=== PATIENT | male | born 1980 | race African-American/Black ===

== ENCOUNTER 2018-06-01 00:26 | Emergency (ER) | payer SELFPAY ==
[2018-06-01] MEDS ORDERED: Dexamethasone 4 MG TAB ONE (01:32)
== END 2018-06-01 02:04 | disposition home or self-care (01) ==
LOC: ERS 00:26
DX: J45.901 Unspecified asthma with (acute) exacerbation (principal); F17.200 Nicotine dependence, unspecified, uncomplicated
CPT/HCPCS: 94640; J7620; J8540

== ENCOUNTER 2018-09-23 13:12 | Emergency (ER) | payer SELFPAY ==
[2018-09-23] MEDS ORDERED: Ketorolac Tromethamine 30 MG/ML VIAL ONE (13:33)
--- NOTE | 2018-09-23 14:24 | ULT ---
ULTRASOUND WITH DOPPLER DUPLEX VENOUS LOWER EXTREMITY RIGHT: 09/23/18 HISTORY: 37-year-old male with right calf pain. TECHNIQUE: Color flow Doppler, spectral waveform analysis of pulsed Doppler, and bowling-scale imaging with ney vee and augmentation, were used to evaluate the right common femoral, femoral, popliteal, posterior tibial, and superficial femoral, veins; and the proximal portions of the profunda femoral and greater saphenous, veins. FINDINGS: There is normal compressibility, demonstration of blood flow by color Doppler and pulsed Doppler, and response to augmentation, in all interrogated veins. IMPRESSION: Negative. No deep vein thrombosis in the right lower extremity. jn [] POS: SATYA
== END 2018-09-23 14:43 | disposition home or self-care (01) ==
LOC: ERS 13:12
DX: M79.661 Pain in right lower leg (principal); J45.909 Unspecified asthma, uncomplicated; F17.200 Nicotine dependence, unspecified, uncomplicated
CPT/HCPCS: 96372; J1885